=== PATIENT | male | born 1945 | race Caucasian/White ===

== ENCOUNTER 2016-08-12 10:40 | Outpatient (CLI) | payer MEDICARE ==
[2016-08-12 18:52] LABS: BILIRUBIN,URINE NEGATIVE (NEGATIVE)
[2016-08-12 19:06] LABS: UR CULTURE IF IND INDICATED; WBC,URINE 0-3 /HPF (0-3)
== END 2016-08-12 10:41 | disposition home or self-care (01) ==
LOC: LAB.WCP 10:40
PROVIDERS: ATTEND Family Medicine
DX: R30.0 Dysuria (principal)
CPT/HCPCS: 81001; 87086